=== PATIENT | female | born 1955 | race Caucasian/White ===

== ENCOUNTER 2017-04-05 07:15 | Day surgery (SDC) | payer OTHER ==
[~2017-04-05] VITALS: Ht 147.3 cm; Wt 72.6 kg
[~2017-04-05 07:15] MED LIST: 0.9% Sodium Chloride 1,000 ML IV SCH; DEXT350P5 PO; DOXY20TA5 PO; LACT1CAP73 PO; OM-31CAP9 PO; Sodium Chloride LOK Flush 10 mL Syringe IV PRN; VITA1CAP16 PO; fentaNYL-PF 50 mCg/mL 2 mL Inj IVPUSH PRN
[2017-04-05 07:53] VITALS: BP 116/77; PULSE 76; RESP 17; O2SAT 98
--- NOTE | 2017-04-05 08:31 | PCM.ENDCOL ---
Colonoscopy Date of Service: April 05, 2017 Physician Jair Segundo MD Pre Procedure Diagnosis: Screening Post Procedure Dx & Findings: Polyp hemorrhoids diverticula Procedure Colonoscopy PROCEDURE IN DETAIL: Prep adequate Withdrawal time 15 minutes After unremarkable rectal examination the Olympus video colonoscope was inserted patient's anal canal and was advanced to cecum. Landmarks were identified including the ileocecal valve and appendiceal orifice. Scope was withdrawn systematically. Visualized colonic mucosa showed healthy shiny mucosa with normal healthy-appearing vasculature. In the cecum, there was a 5 mm polyp which was removed completely using cold snare. In the ascending colon there was a 1 mm polyp which was removed completely using cold forceps. In the rectum there was a 2 mm polyp which was removed completely using cold snare. In the sigmoid colon there few small diverticula. In the rectum retroflexion was done which showed hemorrhoids. Anal canal was inspected carefully on the way out and hemorrhoids noted. Impression Polyp 3 status post complete removal Diverticuli Hemorrhoids Recommendation Repeat colonoscopy 3 years Diverticular diet Presedation Assessment Risks and Benefits Informed consent was obtained from the patient after all risks and benefits including but not limited to drug reaction, infection, pain, bleeding, perforation, as well as alternatives were discussed. Patient monitoring Continuous pulse oximetry, cardiac monitoring, blood pressure monitoring, IV access, and oxygen at 2L per nasal cannula. Periprocedural Fentanyl: Fentanyl 125mcg Incrementally Midazolam: Midazolam 5mg Incrementally Complications There were no periprocedural complications identified. Post Procedure Plan Post Procedure Recommendations 1. Restrict activities today. 2. Resume normal activities in the morning. 3. Resume medications. 4. Patient informed of normal post procedure side effects as bloating, drowsiness, blood streaking in the stool. 5. average risk CRCS. If colon polyps come back as: -Hyperplastic- can repeat colonoscopy in 10 years -Tubular adenoma- repeat colonoscopy in 5 years -Tubulovillous/villous adenoma- repeat colonoscopy in 3 years -If any dysplasia- return to clinic as soon as possible 6. Please don't hesitate to call me with any questions. Jair Segundo MD April 05, 2017 08:31
[2017-04-05 08:36] VITALS: BP 119/83; PULSE 80; RESP 16; O2SAT 94
[2017-04-05 08:45] VITALS: BP 111/72; PULSE 79; RESP 16; O2SAT 91
[2017-04-05 08:50] VITALS: BP 103/74; PULSE 78; RESP 14; O2SAT 100
--- NOTE | 2017-04-06 10:32 | PATH ---
SURGICAL PATHOLOGY Attending Physician:Jair Segundo M.D. CASE STATUS: Signed Out PATIENT NAME: YUE CROSS PID: [id number] : 1955 DATE COLLECTED:04/05/2017 16:02 SPECIMEN: 1: Colon, Biopsy 2: Colon, Biopsy 3: Rectum, Biopsy CLINICAL HISTORY: 1. CECAL POLYP 2. ASCENDING POLYP 3. RECTAL POLYP FINAL DIAGNOSIS: 1.CECAL POLYP: TUBULAR ADENOMA INVOLVING ALL BIOPSY FRAGMENTS. 2.ASCENDING COLON POLYP: TUBULAR ADENOMA. 3.RECTAL POLYP: HYPERPLASTIC POLYP. ICD10 D12.0 GROSS DESCRIPTION: The specimen is received in three formalin filled containers labeled with the patient's name. 1). The specimen is sublabeled "cecal polyps" and consists of 6 portions of tissue which aggregate to 0.4 x 0.4 x 0.2 CM. The specimen is entirely submitted in cassette 1A. 2). The specimen is sublabeled "ascending polyp" and consists of a 0.3 x 0.3 x 0.3 CM portion of tissue which is entirely submitted in cassette 2A. 3). The specimen is sublabeled "rectal polyp and a 0.3 x 0.2 x 0.2 CM portion of tissue which is entirely submitted in cassette 3A. 04/05/2017 DAC MICRO DESCRIPTION: See diagnosis. ICD-9 CODES: CPT CODES: 1: 74749 2: 36198 3: 65897 Electronically Signed Out Eleazar Hernandez MD [facility] Pathology [facility] [address], [place] [address] Technical component performed at [facility], [facility] [address], [place], [address]
== END 2017-04-05 23:59 | disposition home or self-care (01) ==
LOC: END 07:15
PROVIDERS: ATTEND Internal Medicine
DX: Z12.11 Encounter for screening for malignant neoplasm of colon (principal); D12.2 Benign neoplasm of ascending colon; D12.0 Benign neoplasm of cecum; K62.1 Rectal polyp; K57.30 Diverticulosis of large intestine without perforation or abscess without bleeding; K64.9 Unspecified hemorrhoids; Z87.891 Personal history of nicotine dependence
CPT/HCPCS: 45380; 45385; 99153; G0500; J2250; J3010; J7030